=== PATIENT | male | born 1995 ===

== ENCOUNTER 2017-01-08 11:19 | Emergency (ER) | payer BC ==
[2017-01-08 11:58] VITALS: BP 127/59
--- NOTE | 2017-01-08 12:56 | RAD ---
Indication: Left foot pain. 3 views of left foot demonstrates no fracture. No other bone or joint abnormality is identified. IMPRESSION: No fracture of the left foot is noted.
--- NOTE | 2017-01-08 12:56 | RAD ---
Indication: Left ankle pain. 3 views of left ankle demonstrates no fracture or dislocation. No other bone or joint abnormality is identified. IMPRESSION: No fracture of the left ankle is noted.
--- NOTE | 2017-01-08 13:04 | UC ---
Lower Extremity/Ankle HPI - HPI Summary HPI Summary: SLIPPED AND FELL DOWN STAIRS LAST NIGHT. LANDED AWKWARDLY ON LEFT FOOT AND HAS MEDIAL FOOT PAIN AND DIFFUSE ANKLE PAIN AND SWELLING. - History of Current Complaint Chief Complaint: UCLowerExtremity Stated Complaint: FELL-ANKLE/FOOT INJURY Time Seen by Provider: 01/08/17 12:25 Hx Obtained From: Patient Onset/Duration: Sudden Onset, Lasting Hours, Still Present Severity Initially: Moderate Severity Currently: Moderate Pain Intensity: 5 Pain Scale Used: 0-10 Numeric Aggravating Factor(s): Standing, Ambulation Alleviating Factor(s): Rest, Elevation Able to Bear Weight: No - Allergies/Home Medications Allergies/Adverse Reactions: Allergies Allergy/AdvReac Type Severity Reaction Status Date / Time No Known Allergies Allergy Verified 01/08/17 11:50 Home Medications: Home Medications NK [No Home Medications Reported] 01/08/17 [History Confirmed 01/08/17] PMH/Surg Hx/FS Hx/Imm Hx Previously Healthy: Yes - Surgical History Surgical History: None - Family History Known Family History: Positive: Hypertension - Social History Alcohol Use: Weekly Substance Use Type: None Smoking Status (MU): Light Every Day Tobacco Smoker Type: Cigars Review of Systems Constitutional: Negative Skin: Negative Respiratory: Negative Cardiovascular: Negative Gastrointestinal: Negative Musculoskeletal: Arthralgia, Decreased ROM, Edema All Other Systems Reviewed And Are Negative: Yes Physical Exam Triage Information Reviewed: Yes Appearance: Well-Appearing, No Pain Distress, Well-Nourished Vital Signs: Initial Vital Signs Temp 98.2 F 01/08/17 11:52 Pulse 88 01/08/17 11:52 Resp 16 01/08/17 11:52 BP 127/59 01/08/17 11:52 Pulse Ox 96 01/08/17 11:52 Vital Signs Reviewed: Yes Eyes: Positive: Conjunctiva Clear ENT: Positive: Hearing grossly normal Neck: Positive: Supple Respiratory: Positive: No respiratory distress, No accessory muscle use Cardiovascular: Positive: Pulses Normal Abdomen Description: Positive: Soft Musculoskeletal: Positive: ROM Limited @ - LEFT ANKLE, Edema @ - LEFT ANKLE/ FOOT LATERALLY, Other: - TTP LATERAL MALLEOLUS AND MEDIAL FOOT OVER NAVICULAR. Neurological: Positive: Alert Psychological: Positive: Age Appropriate Behavior Skin: Negative: rashes Diagnostics - Radiology LEFT FOOT XRAY Xray Interpretation: No Acute Changes Radiology Interpretation Completed By: Radiologist No standard instances Xray Interpretation: No Acute Changes Radiology Interpretation Completed By: Radiologist Lower Extremity Course/Dx - Differential Dx/Diagnosis Provider Diagnoses: LEFT FOOT SPRAIN Discharge - Discharge Plan Condition: Stable Disposition: HOME Patient Education Materials: Foot Sprain (ED) Referrals: [facility] BETHANY Alvarez [Medical Doctor] - If Needed Additional Instructions: XRAYS TODAY UNREMARKABLE. REST, ICE, COMPRESS, ELEVATE. VLADIMIR WRAP, GEL SPLINT AND CRUTCHES FOR COMFORT. INCREASE WEIGHT BEARING TOLERATED. SEEK FOLLOW-UP IF YOU ARE NOT IMPROVING EXPECTED.
== END 2017-01-08 13:15 | disposition home or self-care (01) ==
LOC: UCEAST 11:19
DX: S93.602A Unspecified sprain of left foot, initial encounter (principal); W10.9XXA Fall (on) (from) unspecified stairs and steps, initial encounter; Y93.9 Activity, unspecified; Y92.9 Unspecified place or not applicable; F17.210 Nicotine dependence, cigarettes, uncomplicated
CPT/HCPCS: 99203; G0463